=== PATIENT | female | born 1965 | race Caucasian/White ===

== ENCOUNTER → 2018-05-19 09:15 | Outpatient (CLI) | payer MEDICAID, SELFPAY ==
[2017-05-19 08:43] VITALS: BMI 49.7
--- NOTE | 2018-05-19 09:17 | RAD_ITS ---
STUDY: X-RAY - LEFT KNEE REASON FOR EXAM: Female, 52 years old. Left knee pain TECHNIQUE: 4 view(s) of the knee. COMPARISON: None. FINDINGS: Normal visualized distal femur. Normal visualized proximal tibia and fibula. Normal proximal tibiofibular articulation. Minimal narrowing of the medial femorotibial compartment. Normal lateral femorotibial compartment. Normal patellofemoral articulation. There is no demonstrated joint effusion. The soft tissue structures are unremarkable. RAD/Knee 4 or More Views IMPRESSION: 1. Minimal narrowing of the medial compartment. No erosive arthropathy or joint effusion. Electronically Signed: Ray Garcia MD at 7:19 EST , Service support ,
== END ==
PROVIDERS: Referring Provider Physician Assistant; Visit Provider Physician Assistant
DX: M25.562 Pain in left knee (principal)
CPT/HCPCS: 73564

== ENCOUNTER → 2018-06-30 09:58 | Outpatient (CLI) | payer MEDICAID, SELFPAY ==
[2017-05-19 08:43] VITALS: BMI 49.7
--- NOTE | 2018-06-30 10:25 | RAD_ITS ---
STUDY: X-RAY - RIGHT KNEE REASON FOR EXAM: Female, 52 years old. Pain TECHNIQUE: 4 view(s) of the knee. COMPARISON: 05/19/2017 FINDINGS: Normal visualized distal femur. Normal visualized proximal tibia and fibula. Normal proximal tibiofibular articulation. There is mild degenerative arthrosis of the medial femorotibial compartment. Normal lateral femorotibial compartment. There is mild degenerative arthrosis of the patellofemoral articulation. The soft tissue structures are unremarkable. RAD/Knee 4 or More Views IMPRESSION: Mild arthrosis Electronically Signed: Chriss Tucker MD at 15:10 EST , Service support ,
== END ==
PROVIDERS: Family Provider Nurse Practitioner Family; PCP Nurse Practitioner Family; Referring Provider Physician Assistant; Visit Provider Physician Assistant
DX: M25.561 Pain in right knee (principal)
CPT/HCPCS: 73564

== ENCOUNTER → 2018-06-30 10:57 | Outpatient (CLI) | payer MEDICAID, SELFPAY ==
[2018-06-30 10:00] VITALS: BMI 51.2
--- NOTE | 2018-06-30 10:58 | RAD_ITS ---
STUDY: X-RAY - LUMBAR SPINE REASON FOR EXAM: Female, 52 years old. Low back pain TECHNIQUE: 5 view(s) of the lumbar spine were obtained. COMPARISON: None FINDINGS: Normal lumbar lordosis. There is no substantial scoliosis. There is a normal alignment of the vertebrae. Normal vertebral bodies and endplates. There is multi-level degenerative disc disease with multi-level disc space narrowing. There is no demonstrated fracture. The soft tissue structures are unremarkable. RAD/L/S Spine Min 4 Views IMPRESSION: Degenerative changes of the spine, as detailed above. Electronically Signed: Chriss Tucker MD at 15:35 EST , Service support ,
== END ==
PROVIDERS: Family Provider Nurse Practitioner Family; PCP Nurse Practitioner Family; Referring Provider Nurse Practitioner Family; Visit Provider Nurse Practitioner Family
DX: M54.5 Low back pain (principal); M25.561 Pain in right knee
CPT/HCPCS: 72110; 73564

== ENCOUNTER 2018-07-04 09:30 | Outpatient (RCR) | payer MEDICAID, SELFPAY ==
--- NOTE | 2018-06-16 10:11 | HP.PTEVAL_ITS ---
Patient's Visit Information ARTHUR SAUNDERS is a 52 year old F referred to Physical Therapy by DUC Kaur with a diagnosis of L medial meniscal pathology, MCL sprain. Date of Evaluation: 06/09/18 Physical Therapist: Jaiden Jacobs DPT - Visit Plan Frequency: 2x /Week Duration: 4 Weeks Plan: Start with modalities to reduce symptoms. AROM of L knee, quad sets, HS sets. Progress to functional strength as tolerated. Work on normalizing her gait pattern as well. - Subjective Findings: Pt. is here today for her initial evaluation with diagnosis of L medial meniscal injury, MCL strain. Pt. reports having increase L knee pain over the past 4-5 months, but worse over the past 1.5. Pt. reports having an injection with good relief for ~2 weeks, but one night she rolled in bed and felt something move out of place, and has had increased pain ever since. Pt. denies N/T in either LE. Pt. reports having increased pain with wall walking, stairs, initial standing, sleeping. Pt. reports no positioning is beneficial. She has a history of R meniscal injury. Pt. is hopeful to reduce symptoms in order to get back to all recreational and household activities without issues. - Pain R medial knee Pain Intensity (Out of 10): 8 Pain Intensity Range: 6, 10 - Objective POSTURE: Pt. is over wt. Pt. has increased R lateral wt. shift. Pt. lacks TKE on LLE. Pt. has increased tibial IR and knee valgus positioning. PALPATION: Pt. has increased tenderness at medial joint line and along patellar tendon. Pt. has no pain with latearl palpation, no popliteal fossa pain. NEURO: Normal DTR of bilateral LEs. Normal sensation throughout. ROM: L knee 0-5-95deg increase pain at both ends of range of motion. MMT: LLE 4/5 throughout, increased pain with ext and flexion of knee. Pt. has waekness in her hip as well. GAIT: Pt. ambulates without AD, but has increased knee pain. Pt. was given cane whiched helped her symptoms. I advised her to work on walking with cane at home. - Goals Goal 1:: Pt. to be I with HEP. Goal Time Frame: 4-6 Weeks Goal 2:: Pt. to have increased L knee ROM to 0-0-120deg without increase in symptoms. Goal Time Frame: 4-6 Weeks Goal 3:: Pt. to have increased LLE stregnth by 1/2 grade throughout. Goal Time Frame: 4-6 Weeks Goal 4:: Pt. to ambulate without AD without increase in symptoms with normal gait pattern. Goal Time Frame: 4-6 Weeks - Rehabilitation Potential Physical Therapy Diagnosis: Pt. presents with L medial meniscal pathology. Pt. had increased pain with flexion and extension motion. Pt. reports increased pain with all wt bearing and expecially stairs. Pt. reports moving in bed and has had increased pain ever since. Pt. would benefit from PT to increase ROM, decrease symptoms and promote tolerance to all functional mobility. Rehabilitation Potential: Fair - Anticipated Interventions Patient/Client Instruction: Educate patient on: Condition, Plan of Care, Risk Factors, Benefits of Fitness Program For the Purpose of:: To improve decision making, To facilitate caregiver knowledge, To improve self management, To prevent re-injury, To improve ability to perform tasks related to life management, To improve tolerance to ADL's Therapeutic Exercise to Include: Strength training, Power training, Body mechanics, Flexibilty training, Gait and locomotor training, Passive ROM, Active ROM, Dynamic Lumbar Stabilization For the Purpose of:: To decrease pain, To decrease swelling/inflammation, To increase ROM, To improve nutrient delivery to tissue, To improve muscle pe rformance and motor function, To improve ability of physical actions for home/community/work/leisure, To improve gait and locomotor functions, To improve health of tissue, To decrease soft tissue restriction, To increase flexibility/ROM, To improve safety with gait, To assume or resume ADL's Manual Therapy Techniques to Include: Mobilization, Passive ROM, Functional dry needling, Soft tissue mobilization For the Purpose of:: To decrease pain, To decrease swelling/inflammation, To increase ROM, To decrease soft tissue restriction, To increase flexibility/ROM, To improve endurance, To improve balance, To improve safety with gait, To assume or resume ADL's TENS: Yes IF ES: Yes Other electric stimulation: Yes Cryotherapy (ice pack, ice massage): Yes Thermo therapy (hot pack): Yes Ultrasound (thermal/non thermal): Yes For the Purpose of:: To decrease pain, To decrease swelling/inflammation, To increase ROM, To improve nutrient delivery to tissue, To increase oxygenation perfusion, To improve muscle performance and motor function, To improve health of tissue, To decrease soft tissue restriction Thank you for the opportunity to evaluate your patient. For Medicare and Medicare HMO plans, please review the plan of care and approve it. It will need to be FAXED BACK to us at [phone] for Medicare purposes. For Medicare only, by signing this I certify the plan of care. Please let me know if there are questions or concerns regarding this plan of care. Physician Signature: Date:
--- NOTE | 2018-12-20 13:40 | HP.PT.NRP ---
HP - Discharge Summary (1) - Patient Information ARTHUR SAUNDERS was seen in my office for initial evaluation on 06/09/18. The following Plan of Care was established for this patient: Initial Frequency: 2x /Week Initial Duration: 4 Weeks - Anticipated Interventions Patient/Client Instruction: Educate patient on: Condition, Plan of Care, Risk Factors, Benefits of Fitness Program For the Purpose of:: To improve decision making, To facilitate caregiver knowledge, To improve self management, To prevent re-injury, To improve ability to perform tasks related to life management, To improve tolerance to ADL's Therapeutic Exercise to Include: Strength training, Power training, Body mechanics, Flexibilty training, Gait and locomotor training, Passive ROM, Active ROM, Dynamic Lumbar Stabilization For the Purpose of:: To decrease pain, To decrease swelling/inflammation, To increase ROM, To improve nutrient delivery to tissue, To improve muscle performance and motor function, To improve ability of physical actions for home/community/work/leisure, To improve gait and locomotor functions, To improve health of tissue, To decrease soft tissue restriction, To increase flexibility/ROM, To improve safety with gait, To assume or resume ADL's Manual Therapy Techniques to Include: Mobilization, Passive ROM, Functional dry needling, Soft tissue mobilization For the Purpose of:: To decrease pain, To decrease swelling/inflammation, To increase ROM, To decrease soft tissue restriction, To increase flexibility/ROM, To improve endurance, To improve balance, To improve safety with gait, To assume or resume ADL's TENS: Yes IF ES: Yes Other electric stimulation: Yes Cryotherapy (ice pack, ice massage): Yes Thermo therapy (hot pack): Yes Ultrasound (thermal/non thermal): Yes For the Purpose of:: To decrease pain, To decrease swelling/inflammation, To increase ROM, To improve nutrient delivery to tissue, To increase oxygenation perfusion, To improve muscle performance and motor function, To improve health of tissue, To decrease soft tissue restriction This patient was last seen in our office 07/20/18. Pertinent comments regarding their Physical therapy will appear below: Pt. was not been seen in several months and will be DC from PT at this point intime. At this point I will be discontinuing this patient from physical therapy. I would be happy to see this patient again in the future if found appropriate by the physician. Thank you! Jaiden Jacobs, TASH
== END 2018-07-04 19:00 | disposition home or self-care (01) ==
LOC: PT 09:30
PROVIDERS: Family Provider Nurse Practitioner Family; PCP Nurse Practitioner Family; Referring Provider Physician Assistant; Visit Provider Physician Assistant
DX: S83.412D Sprain of medial collateral ligament of left knee, subsequent encounter (principal)
CPT/HCPCS: 97035; 97110; 97161